=== PATIENT | male | born 2000 | race Caucasian/White ===

== ENCOUNTER 2024-06-25 19:32 | Emergency (ER) | payer OTHER ==
[~2024-06-25] VITALS: Ht 177.8 cm; Wt 78.0 kg
[2024-06-25] MEDS: ondansetron 4mg rapidly disintigrating tab PO ONE (19:59)
[2024-06-25 20:10] LABS: BASOPHILS % (AUTO) 0.7 % (0-1); EOSINOPHILS # (AUTO) 0.3 X10'3 (0-0.9); EOSINOPHILS % (AUTO) 4.1 % (0-6); HEMATOCRIT 39.7 % (42.0-52.0); LYMPHOCYTES # (AUTO) 1.8 X10'3 (1.1-4.8); MEAN CORPUSCULAR HEMOGLOBIN 26.7 PG (27.0-31.0); MEAN CORPUSCULAR HGB CONC 32.8 g/dL (33.0-36.5); MEAN CORPUSCULAR VOLUME 81.4 FL (78-98); MEAN PLATELET VOLUME 7.7 FL (7.4-10.4); MONOCYTES # (AUTO) 0.5 X10'3 (0-0.9); MONOCYTES % (AUTO) 7.3 % (2-12); NEUTROPHILS # (AUTO) 4.7 X10'3 (1.8-7.7); NEUTROPHILS % (AUTO) 63.9 % (42-75); PLATELET COUNT 262 X10'3 (140-440); RED BLOOD COUNT 4.87 X10'6 (4.70-6.10); RED CELL DISTRIBUTION WIDTH 13.9 % (11.5-14.5); WHITE BLOOD COUNT 7.4 X10'3 (4.5-11.0)
[2024-06-25 20:24] LABS: ALANINE AMINOTRANSFERASE 37 U/L (12-78); ALBUMIN 3.6 G/DL (3.4-5.0); ALKALINE PHOSPHATASE 55 IU/L (46-116); ANION GAP 4 (8-16); ASPARTATE AMINO TRANSFERASE 20 U/L (10-37); BILIRUBIN,TOTAL 0.2 MG/DL (0.1-1.0); BLOOD UREA NITROGEN 12 MG/DL (7-18); BUN/CREATININE RATIO 11.5 (10.0-20.0); CHLORIDE 101 MMOL/L (99-107); CREATININE 1.04 MG/DL (0.60-1.10); GLUCOSE 102 MG/DL (70-104); POTASSIUM 4.2 MMOL/L (3.5-5.1); SODIUM 138 MMOL/L (135-145); TOTAL CARBON DIOXIDE 33.3 MMOL/L (24-32); TOTAL PROTEIN 7.1 G/DL (6.4-8.2); eCRCL 116 ML/MIN; eGFR 90 ML/MIN
[2024-06-25] MEDS ORDERED: ONDA-243 PO (20:45)
[2024-06-25] MEDS: pantoprazole 40mg Tablet.DR PO ONE (20:50)
[2024-06-25] MEDS: ketorolac trometh 30MG/ML vial 30 MG/ML VIAL IM ONE (20:50)
[2024-06-25 21:01] VITALS: BP 120/72; PULSE 92; RESP 18; TEMP 98; O2SAT 100
[2024-06-26] MEDS ORDERED: ONDA-243 PO (21:38)
== END 2024-06-25 21:04 | disposition home or self-care (01) ==
LOC: ER 19:33
DX: R11.2 Nausea with vomiting, unspecified (principal); F12.90 Cannabis use, unspecified, uncomplicated; Z79.899 Other long term (current) drug therapy; Z87.820 Personal history of traumatic brain injury
CPT/HCPCS: 36415; 80053; 85025; 96372; 99283; J1885

== ENCOUNTER 2024-06-26 19:35 | Emergency (ER) | payer OTHER ==
[~2024-06-26] VITALS: Ht 177.8 cm; Wt 71.0 kg
[~2024-06-26 19:35] MED LIST: ONDA-243 PO
[2024-06-26] MEDS: ondansetron 4mg rapidly disintigrating tab PO ONE (21:11)
[2024-06-26] MEDS ORDERED: ONDA-243 PO (21:38)
[2024-06-26 21:42] VITALS: BP 100/50; PULSE 71; RESP 16; TEMP 98.5; O2SAT 99
== END 2024-06-26 21:44 | disposition home or self-care (01) ==
LOC: ER 19:35
DX: R11.2 Nausea with vomiting, unspecified (principal); R07.89 Other chest pain; F12.90 Cannabis use, unspecified, uncomplicated
CPT/HCPCS: 99283